=== PATIENT | female | born 1950 | race Caucasian/White ===

== ENCOUNTER 2024-11-13 09:44 | Inpatient (IN) | payer MEDICARE, SELFPAY ==
[2024-11-13] VITALS (27 sets, daily range): BP systolic 57–133; BP diastolic 35–96; BMI 24.8
[2024-11-13 07:26] LABS: Glucose - Point of Care 99 mg/dl (70-99)
[2024-11-13] MEDS: SUBLIMAZE 100 IV (07:30)
[2024-11-13] MEDS: LEVOPHED 250 IV (07:30)
--- NOTE | 2024-11-13 07:35 | ED.GENMED ---
History of Present Illness
General
Chief Complaint: Breathing Problem
Source: patient
Exam Limitations: none
Time Seen by Provider: 11/13/24 07:27
Nursing documentation reviewed up to this point in time: agreed with
History of Present Illness
History of Present Illness:
Patient with history of oxygen dependent COPD and atrial fibrillation on Eliquis, presents to ED from [facility] for evaluation after she was found unresponsive by staff this morning. Last known well time unknown. Per paramedics, when arrived at
scene, patient was found to be hypotensive, unresponsive to verbal or physical stimuli, with poor respiratory effort, along with hypoxia. Patient's initial pulse ox noted to be in the 50s. Patient was started on IV fluids, intubated at scene, and
started on epi drip for blood pressure support. Patient was provided with ketamine and Versed for sedation postintubation. Of note, Eliquis was discontinued 3 days ago, secondary to hematuria. Unable to obtain any further information at this time.
Review of Systems
Review of Systems
Allergies reviewed?: Yes
Unable to obtain full review of systems at this time due to: intubated
All Other Systems: Not applicable
Phy Exam
Physical Exam
Physical Exam:
Physical Exam
General: intubated, unresponsive. Afebrile.
Head: nc/at
Neck: supple. no jvd.
Heart: s1/s2 regular rate and rhythm, no murmur.
Lungs: no acute respiratory distress. clear bilaterally
Abdomen: normal bowel sounds. no distention
Neuro: intubated, unresponsive.
Skin: no rash
Extremities: no edema.
Scores
Heart Failure Risk
Heart Failure Risk Score: Not Applicable
Course
Orders/Labs/Results
Orders:
Orders
11/13/24 07:23
CXR Port [CR Chest Portable - 1 View] Urgent
Comment:
Reason For Exam: code
Reason Study Needs to be Portable: Patient Unstable
11/13/24 07:24
Electrocardiogram (*1) Urgent
Reason for Study: TIA/Stroke
EKG- Treatment ONCE
11/13/24 07:27
FentaNYL 1,000 MCG/100 ML [Sublimaze] 1,000 mcg in 100 ml .ROUTE .STK-MED
11/13/24 07:28
CMP [Comprehensive Metabolic Panel] Urgent
Complete Blood Count/With Diff Urgent
Lactic Acid Urgent
Magnesium Urgent
Comment: ADD
Manual Differential Urgent
PT/INR [Prothrombin Time] Urgent
Phosphorus Urgent
Comment: ADD
Pro-BNP [NT-proBNP] Urgent
Troponin I Urgent
Blood Culture Urgent
AL Source: Blood/Venous
Specimen Description:
11/13/24 07:32
CT Head W/o Iv Contrast Urgent
Comment:
Reason For Exam: mental status change
11/13/24 07:33
FentaNYL 1,000 MCG/100 ML [Sublimaze] 1,000 mcg in 100 ml IV NOW
Indication:: Light Sedation
Begin Infusion:: Now
Goal:: pain score </= 1, CPOT 0-2
Maximum dose in mcg/hr:: 300
Initial Dose in mcg/hr:: 50
Titration Instructions:: Titrate every 30 minutes if patient exhibits signs of pain or discomfort
Titration Instructions:: (pain score >/= 2, CPOT >/= 3).
Titration Instructions:: Administer bolus dose and increase infusion by 25 mcg/hr.
Taper Instructions:: If pain score at goal for 4 consecutive hours (pain score </= 1, CPOT 0-2)
Taper Instructions:: decrease infusion by 50 mcg/hr every 2 hours.
Taper Instructions:: When dose </= 50 mcg/hr may turn infusion off and consider PRN
Taper Instructions:: intermittent bolus doses only.
Over-sedation Instructions:: If CPOT 0-2 (goal) and RASS -3 to -5 (below goal) decrease sedative by 50%
Over-sedation Instructions:: first. If pain score remains at goal and RASS remains below goal in 1 hour,
Over-sedation Instructions:: decrease opioid infusion by 50%.
Notify provider:: immediately if pt exhibits: chest wall rigidity, hemodynamic instability,
Notify provider:: agitation/pain despite maximum dosing, pain when RASS below goal.
Additional Instructions:: Patient MUST be mechanically ventilated.
Fentanyl Citrate/Pf [Sublimaze] 50 mcg IV [id number] PRN
Fentanyl Citrate/Pf [Sublimaze] 60 mcg IV NOW STA
11/13/24 07:41
ABG [Arterial Blood Gas] Stat
%Oxygen/Room Air: 100
11/13/24 07:45
NORepinephrine 4 MG/250 ML [Levophed] 4 mg in 250 ml IV PER PROTOCOL
Initial dose in mcg/min, then titrate:: 5
Titrate to keep:: SBP > 90 mmHg
Titrate by mcg/min:: 1-2 mcg/min
Frequency of titrations (minutes):: 5
Maximum dose in ICU in mcg/min:: 30
Maximum dose in IMU in mcg/min:: 8
Maximum dose in IVU in mcg/min:: 4
Begin to taper infusion when:: Remained at goal for 4hrs
Taper by mcg/min:: 1-2 mcg/min
Frequency of taper (minutes) if patient maintains goal:: 30
Taper to off?: Yes
If infusion off & no longer maintaining goal:: Contact Provider
11/13/24 07:46
Urinalysis Reflex To Culture Urgent
Date Specimen was Collected: 11/13/24
Time Specimen was Collected: 07:38
Urine Microscopic Reflex Cult Urgent
11/13/24 07:49
DOPamine 400 MG/D5W 250 ML [DOPamine 400 MG] 400 mg in 250 ml .ROUTE .STK-MED
11/13/24 08:34
Maria Placement- Treatment ONCE
Reason for insertion: I&O's Critical Care
11/13/24 08:35
0.9% Sodium Chloride 1000 ml [Nss] 1,000 ml IV BOLUS
11/13/24 08:40
Strap Folding Machine Operator Consult Routine
Consulting Provider: Gavin Weeks
Was physician already notified: Yes
NEUROLOGY CONSULT Routine
Consulting Provider: Jorge Nicole
Was physician already notified: Yes
11/13/24 08:41
Blood Culture Urgent
AL Source: Blood/Venous
Specimen Description:
Date Specimen was Collected: 11/13/24
Time Specimen was Collected: 07:38
11/13/24 08:45
DOPamine 400 MG/D5W 250 ML [DOPamine 400 MG] 400 mg in 250 ml IV PER PROTOCOL
Initial dose in mcg/kg/min, then titrate:: 5
Titrate to keep:: SBP > 90 mmHg
Titrate by mcg/kg/min:: 1-2 mcg/kg/min
Frequency of titrations (minutes):: 15
Maximum dose in ICU in mcg/kg/min:: 20
Maximum dose in IMU in mcg/kg/min:: 10
Begin to taper infusion when:: Remained at goal for 4hrs
Taper by mcg/kg/min:: 1-2 mcg/kg/min
Frequency of taper (minutes) if patient maintains goal:: 30
Taper to off?: Yes
If infusion off & no longer maintaining goal:: Contact Provider
Lorazepam [Ativan] 1 mg IV NOW STA
Vecuronium Questa [Norcuron] 6 mg IV NOW STA
11/13/24 08:55
Type+Screen Urgent
11/13/24 09:10
ABO2 Urgent
BBK Wristband Number:
Associate notified that ABO2 has been ordered: [id number]
Date: 11/13/24
Time: 09:09
Electrical Tryout Person ID: [id number]
11/13/24 09:19
Admit/Transfer Patient As Directed
Co-Sign Provider:
Level of Care: Inpatient admission
Assign to:: ICU
Physician / Group: Ryan/hospitalist
Diagnosis: unresponsiveness
Reason for Hospitalization: unresponsiveness
Expected length of stay greater than two midnights?: Yes
ELOS- Estimated Length of Stay in days: 3
I certify the patient meets the requirements for IP care: Yes
11/13/24 09:20
Code Status As Directed
Resuscitation Status: Full Code
PRN Pain Medication Management As Directed
May give lesser potent ordered pain med per pt: Yes
preference::
Protocol:: Medication orders for pain may be administered in a
manner that supports deferring to patient preference
when the pt is:
- Requesting an ordered lesser potent pain medication.
Least to most potent pain medications are defined
as: acetaminophen < NSAID < tramadol < opioids
(morphine, oxycodone, hydromorphone).
- Requesting a lesser dose of the same medication IF
ORDERED.
- Requesting a less intrusive route of administration
if both routes are prescribed by the provider (PO <
IV).
11/13/24 09:52
Acetaminophen [Tylenol/Feverall] 650 mg RECTAL Q4HPRN PRN
Acetaminophen [Tylenol] 650 mg PO Q4HPRN PRN
Dextrose 50%-Water [Dextrose 50% Syringe] 12.5 grams IV [id number] PRN
Glucagon [GlucaGen] 1 mg IM PRN PRN
11/13/24 09:52
Case Management Consult ONCE
Case Management Consult: Discharge Planning
Comment: stroke/tia
DIETARY IP CONSULT Routine
Reason for Consult: stroke/TIA
Mechanical Service Representative Urgent
WOUND/OSTOMY CONSULT Routine
Reason for Consult: skin wounds
Activity As Directed
Activity Level: As Tolerated
Bedside Glucose Monitoring As Directed
Frequency: AC&HS
Additional Instructions:: Change to q6h if pt on TPN, tube feeding or not eating
NIH Stroke Scale As Directed
Directions: Per protocol
Comment: every shift and with any change in condition or mental status
Neurological Checks As Directed
Frequency: q4h
Additional Instructions:: q4h x 24h upon admission to the floor, then qshift & with any change in condition
and mental status
Pneumatic Compression Sleeves As Directed
Type: Knee high
Vital Signs As Directed
Frequency: Per unit guidelines
Ot Eval And Treat Routine
Pt Eval And Treat Routine
Activity Level: As Tolerated
Speech Therapy Eval & Treat Routine
DX Deep Vein Thrombosis Video Routine
11/13/24 12:00
Hydrocortisone Sod Succinate [Solu-Cortef] 50 mg IV Q6
Insulin Aspart Corrective Low [Novolog Flexpen-Low Resistance] See Protocol SC Q6
Abnormal Lab Results
11/13/24 11/13/24 11/13/24
07:28 07:41 07:46
WBC 3.8 L 10^3/uL
(4.8-10.8)
RBC 2.30 L 10^6/uL
(4.20-5.40)
Hgb 7.1 L g/dL
(12.0-16.0)
Hct 21.5 L %
(37.0-47.0)
RDW 17.8 H %
(11.5-14.5)
Plt Count 71 L 10^3/uL
(130-400)
MPV 12.0 H fL
(7.4-10.4)
Lymphocytes (Manual) 17 L %
(20-51)
PT 30.0 H Sec
(11.4-14.6)
pCO2 23 L mmHg
(32-35)
pO2 408 H mmHg
(83-108)
HCO3 13.9 L* mmol/L
(21-28)
ABG O2 Sat (Measured) 99.2 H %
(94-98)
Sodium 131 L mmol/L
(135-145)
Carbon Dioxide 17 L mmol/L
(22-30)
BUN 37 H mg/dl
(7-17)
Lactic Acid 8.2 H* mmol/L
(0.7-2.0)
Calcium 6.9 L* mg/dl
(8.4-10.2)
Troponin I 0.201 H* ng/ml
Total Protein 2.6 L g/dl
(6.3-8.2)
Albumin 1.3 L g/dl
(3.5-5.0)
Ur Occult Blood Reflex 1+ A
(Negative)
Urine Bacteria (Reflex) Few A
(Negative)
Urine Yeast Many A
(Negative)
Urine Glucose 1+ A
(Negative)
Urine Albumin (Reflex) 2+ A
(Neg - Trace)
11/13/24 07:28
11/13/24 07:28
Vital Signs
Initial and Last Documented VS:
Initial Vital Signs
Pulse Resp BP Pulse Ox
87 14 57/40 100
11/13/24 07:31 11/13/24 07:31 11/13/24 07:31 11/13/24 07:31
Last Documented Vital Signs
Temp Pulse Resp BP Pulse Ox
96.5 F L 59 11 78/49 71
11/13/24 11:00 11/13/24 13:30 11/13/24 13:30 11/13/24 12:50 11/13/24 12:00
MDM/Problems Addressed
MDM/Problems Addressed:
Patient evaluated immediately upon arrival. After chest x-ray, ET tube adjusted, next was noted to be near right mainstem. As such, ET tube pulled back 1 cm.
Epi infusion discontinued and Levophed started along with IV fluids. Patient will be started on fentanyl infusion.
Stat CT head ordered.
CT head: Evolving subacute CVA without hemorrhage.
Secondary to persistent hypotension despite max infusion rate of Levophed, will add dopamine infusion.
Left femoral central line placed emergently by myself.
Patient will be admitted to ICU for further evaluation and treatment.
(neurology) notified via [email or web address]
Critical care statement: A total of 40 minutes of critical care time was provided for this patient. This includes management of unstable vital signs, evaluation of the patient at bedside, reviewing the patient's pertinent medical records, discussion
with consultants, review of old EKGs and review of pertinent medical records. This time with separate from time utilized to perform the aforementioned documented procedures
*EKG
Interpreted by ED Provider?: Yes
EKG Intrepretation Date: 11/13/24
Heart Rate: 94
Rate: normal
Rhythm: sinus
[place]: left axis deviation
*Critical Care Note
Total Time (30-74mins, 75-104mins- exclusive of procedures): 40 min
ED Attending Note
-
Portions of this chart may have been created with voice recognition software.� Occasional wrong word or��sound alike� substitutions may have occurred due to the inherent limitations of voice recognition software.
Discharge Plan
Departure
Patient Disposition: Admit
Date of Disposition: 11/13/24
Time of Disposition: 08:32
Admit to: ICU
Presentation/result/management discussed w/ accepting MD/DO: Hospitalist
Discharge Problem:
Acute CVA (cerebrovascular accident), Respiratory failure, Hypotension
Interventions
Interventions:
*Risk Screen - Suicide Last Done: 11/13/24 11:17
*Neglect/Abuse Screening Last Done: 11/13/24 08:18
*ED- Fall Risk Assessment Last Done: 11/13/24 07:36
*Nursing Disposition Last Done: 11/13/24 10:07
ED- Cardiac Assessment Last Done: 11/13/24 08:08
ED- Pulmonary Assessment Last Done: 11/13/24 08:11
Discharge Date and Time
Discharge Date/Time: 11/13/24 09:55
[2024-11-13 07:49] LABS: B.E. -10.1 mmol/L; O2 Saturation % 99.2 % (94-98); PCO2 23 mmHg (32-35); PO2 408 mmHg (83-108); pH 7.39 (7.35-7.45)
[2024-11-13 07:51] LABS: HCO3 13.9 mmol/L (21-28)
[2024-11-13 07:51] LABS: INR 2.81
[2024-11-13 07:59] LABS: Hematocrit 21.5 % (37.0-47.0); Hemoglobin 7.1 g/dL (12.0-16.0); Mean Corpuscular Hgb 30.9 pg (27.0-31.0); Mean Corpuscular Volume 93.5 fL (81.0-99.0); Platelet Count 71 10^3/uL (130-400); Red Cell Dist. Width 17.8 % (11.5-14.5); White Blood Cell Count 3.8 10^3/uL (4.8-10.8)
[2024-11-13 08:00] LABS: AST (SGOT) 23 U/L (14-36); Albumin 1.3 g/dl (3.5-5.0); Alkaline Phosphatase 89 U/L (38-126); Blood Urea Nitrogen 37 mg/dl (7-17); Calcium 6.9 mg/dl (8.4-10.2); Carbon Dioxide 17 mmol/L (22-30); Chloride 104 mmol/L (98-107); Glucose 90 mg/dl (70-99); Lactic Acid 8.2 mmol/L (0.7-2.0); Potassium 3.5 mmol/L (3.5-5.1); Sodium 131 mmol/L (135-145); Total Bilirubin 0.7 mg/dl (0.2-1.3); Total Protein 2.6 g/dl (6.3-8.2); eGFR 58.75
[2024-11-13 08:13] LABS: NT-proBNP > 27000 pg/ml; Troponin I 0.201 ng/ml
--- NOTE | 2024-11-13 08:15 | EDRN ---
during initial eval- multiple areas of ecchmosis abd/ thigh, many areas of skin breakdown
[2024-11-13 08:28] LABS: ALT (SGPT) 31 U/L (0-35)
--- NOTE | 2024-11-13 08:36 | CON.INTV ---
Consultation
Consultation Request
Date/Time Consultation Requested: 11/13/2024-10 AM
Date/Time Consultation Performed: 11/13/2024-10 AM
Requesting Provider: hospitalist
Performing Provider: Dr. Weeks
Reason for Consultation: ventilator/CVA/critical care management
Medical History
-
Chief Complaint: CVA
History of Present Illness:
74-year-old former smoking female who is oxygen dependent COPD, atrial fibrillation on Eliquis, hypertension, hyperlipidemia, dementia, diabetes who presented from a longterm after having Eliquis held for 2 days due to hematuria with decreased
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 Patient is unresponsive on the ventilator and review of systems was unobtainable. He she does not
have significant secretions. The ventilator settings were reviewed.
Past Medical History
Past Medical History: None ( COPD-oxygen dependent. Former smoker. Atrial fibrillation on Eliquis. Hypertension. Hyperlipidemia. Diabetes. Dementia. halfway patient.)
Social History
Tobacco: Former Smoker
Alcohol: None
Drug: None
Living: [facility]
Occupational Exposures: Unknown tuberculosis exposure
Environmental Exposures: unknown asbestos exposure
Family History
Family History: Reviewed & Not Pertinent
Allergies / Home Medications
Allergies
Allergy/AdvReac Type Severity Reaction Status Date / Time
chlorpheniramine Allergy Pharmacy Verified 11/13/24 07:22
to Review
hydrocodone Allergy Pharmacy Verified 11/13/24 07:22
to Review
latex Allergy Pharmacy Verified 11/13/24 07:22
to Review
lisinopril Allergy Pharmacy Verified 11/13/24 07:22
to Review
Home Medications
�Medication �Instructions �Recorded �Confirmed �Last Taken �Type
acetaminophen 325 mg tablet 650 mg PO Q6HPRN PRN mild pain 11/13/24 11/13/24 Unknown History
(Tylenol)
apixaban 5 mg tablet (Eliquis) 5 mg PO BID 11/13/24 11/13/24 Unknown History
aspirin 81 mg tablet 81 mg PO DAILY 11/13/24 11/13/24 Unknown History
bisacodyl 10 mg rectal suppository 10 mg VA DAILYPRN PRN if no bm 11/13/24 11/13/24 Unknown History
(Dulcolax (bisacodyl)) aftr mom
cholecalciferol (vitamin D3) 25 50 mcg PO DAILY 11/13/24 11/13/24 Unknown History
mcg (1,000 unit) tablet (Vitamin
D3)
diltiazem HCl 180 mg capsule,24 180 mg PO DAILY 11/13/24 11/13/24 Unknown History
hr,extended release
donepezil 10 mg tablet 10 mg PO HS 11/13/24 11/13/24 Unknown History
ezetimibe 10 mg tablet (Zetia) 10 mg PO DAILY 11/13/24 11/13/24 Unknown History
fluticasone 250 mcg-salmeterol 50 1 inh inhalation R BID 11/13/24 11/13/24 Unknown History
mcg/dose blistr powdr for
inhalation (Advair Diskus)
insulin lispro 100 unit/mL 1 sliding scale dose SC ACHS 11/13/24 11/13/24 Unknown History
subcutaneous pen (Humalog KwikPen
(U-100) Insulin)
ipratropium 0.5 mg-albuterol 3 mg 3 ml inhalation R Q6HPRN PRN sob 11/13/24 11/13/24 Unknown History
(2.5 mg base)/3 mL nebulization
soln
magnesium hydroxide 400 mg/5 mL 2,400 mg PO DAILYPRN PRN if no bm 11/13/24 11/13/24 Unknown History
oral suspension (Milk of Magnesia) by 3rd day
magnesium oxide 400 mg PO DAILY 11/13/24 11/13/24 Unknown History
montelukast 10 mg tablet 10 mg PO DAILY 11/13/24 11/13/24 Unknown History
(Singulair)
pantoprazole 40 mg tablet,delayed 40 mg PO BID 11/13/24 11/13/24 Unknown History
release
polyethylene glycol 3350 17 gram 17 g PO DAILYPRN PRN comnstipation 11/13/24 11/13/24 Unknown History
oral powder packet (Miralax)
prednisone 20 mg tablet 50 mg PO DAILY 11/13/24 11/13/24 Unknown History
sennosides 8.6 mg tablet (senna) 17.2 mg PO DAILYPRN PRN 11/13/24 11/13/24 Unknown History
constipation
sodium phosphates 19 gram-7 118 ml VA DAILYPRN PRN if no bm 11/13/24 11/13/24 Unknown History
gram/118 mL enema (Fleet Enema) aftr dulcolax
umeclidinium 62.5 mcg/actuation 1 inh inhalation R DAILY 11/13/24 11/13/24 Unknown History
blister powder for inhalation
(Incruse Ellipta)
Review of Systems
-
Unable to Obtain full review of systems at this time due to: Patient Intubation
Vitals / Labs / Diagnostic Testing
Vital Signs
Pulse Resp BP Pulse Ox
81 14 96/50 100
11/13/24 08:10 11/13/24 08:10 11/13/24 08:06 11/13/24 08:06
Lab Data
11/13/24 07:28
11/13/24 07:28
Laboratory Results
11/13/24 11/13/24
07:28 07:41
PT 30.0 H
INR 2.81
pH 7.39
pCO2 23 L
pO2 408 H
HCO3 13.9 L*
O2 Delivery Level
Diagnostic Testing:
Physical Exam
-
Exam:
well-nourished and well-developed, orotracheal intubation in no distress
HEENT-atraumatic, normocephalic
Neck-supple, no JVD, no bruit
Heart regular with systolic murmur
Chest with diminished breath sounds, prolonged expiratory time, no wheezes or crackles
Back-no tenderness
Abdomen-soft, nontender, nondistended, no hepatosplenomegaly
Extremities-no cyanosis, clubbing, trace edema, ecchymotic areas, left foot discolored/slightly blue-warm
Integument-intact, no rashes, lesions or ecchymosis
Neurologically not alert, not oriented, sedated on a ventilator
Assessment
-
74-year-old former smoking female who is oxygen dependent COPD, atrial fibrillation on Eliquis, hypertension, hyperlipidemia, dementia, diabetes who presented from a longterm after having Eliquis held for 2 days due to hematuria with decreased
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
Respiratory failure-acute on top of chronic hypoxemic respiratory failure requiring intubation
Intubated 11/13/2024
Extubated
Change in mental status/unresponsive felt secondary to acute CVA
CVA-acute/subacute nonhemorrhagic
Hypotension/shock requiring pressors
Atrial fibrillation on Eliquis-held for 72 hours for hematuria
Leukopenia
Rohjiq-jgvrcotleh-hpzblxtivi 7.1-etiology unclear
Recent hematuria
Thrombocytopenia
Hyponatremia
Metabolic acidosis
Lactic acidosis
Elevated troponin-suspected NSTEMI
Hypocalcemia
Hypoalbuminemia
Conditions present prior to admission:
COPD-oxygen dependent.
Former smoker.
Atrial fibrillation on Eliquis.
Hypertension.
Hyperlipidemia.
Diabetes.
Dementia.
halfway patient.
Plan
Critically ill intubated with evolving CVA in a patient with advanced oxygen dependent COPD requiring medical intensive care unit monitoring
Intubated mechanically ventilated
Ventilator settings reviewed
Check ABG
Adjust ventilator
Spontaneous breathing trial once mental status improves
VAP prevention protocol
Nebulizers as needed
Mucolytic's
Neuro exams continue
CT head summarized below
Neurology evaluation
Note Eliquis was held for 72 hours prior to admission due to hematuria
Check cultures
Observe off antibiotics-no obvious source for infection or cause of hypotension
Norepinephrine-MAP greater than 65
Subsequently consider vasopressin, dopamine if bradycardic
Follow lactate
Intravenous fluid resuscitation
Trend troponin
Atrial fibrillation rate control
Consider cardiology evaluation if troponin continues to increase-abnormal EKG as well
Follow hemoglobin
Transfuse as needed
Monitor for recurrent hematuria
Follow thrombocytopenia
Transfuse as needed
Replace electrolytes
DVT prophylaxis
GI prophylaxis while on ventilator and hypotensive
Early nutrition
Early mobilization/bedside range of motion
Critical care statement: A total of 65 minutes of critical care time was provided for this patient today. This includes management of unstable vital signs, evaluation of the patient at bedside, reviewing the patient's pertinent medical records
including radiographs, ventilator management, pressor management, microbiology, laboratory evaluations, and discussion with primary team, consultants, pharmacy, nutrition, physical therapy, case management, charge nurse, critical care nursing, and
respiratory therapy.
Diagnostic data:
Chest x-ray 11/13/2024-endotracheal tube tip 1 cm above the cal
CT head 11/13/2024-evolving small acute/subacute nonhemorrhagic infarct right posterior parietal lobe, small old infarcts in the right parietal lobe
Data Reviewed
-
EKG: Report reviewed by me
Radiology: Image personally visualized and interpreted and Report reviewed by me
CT Scan: Report reviewed by me
Medical Tests (Nuc Med, Echo etc): Report reviewed by me
Labs: Labs reviewed by me
Old Records: Reviewed
Critical Care Time (in minutes): 65
--- NOTE | 2024-11-13 08:40 | HPS.HSE ---
Family Physician
-
Family Physician: Joshua Greenwood,
Chief Complaint
-
unresponsiveness
History of Present Illness
HPI: 74 yo F, h/o oxygen dependent COPD, atrial fibrillation on Eliquis, HTN, HLD, dementia orientated to self, IDDM; presented to ED from skilled nursing for decrease responsiveness noted by staff in the morning. Last known well time unknown.
Per paramedics, when arrived at scene, patient was found to be hypotensive, unresponsive to verbal or physical stimuli, with poor respiratory effort, along with hypoxia.
Patient's initial sat was noted to be in the 50s. Patient was started on IV fluids, intubated on scene, and started on epi drip for blood pressure support. Patient was provided with ketamine and Versed for sedation postintubation. Of note, Eliquis
was discontinued 3 days DATA SUPPORT SPECIALIST secondary to hematuria.
History obtained from ED staff.
Medical History
Past Medical History
Past Medical History: Reports Other
Additional Past Medical History:
oxygen dependent COPD,
atrial fibrillation on Eliquis,
HTN,
HLD,
dementia orientated to self,
Past Surgical History: Reports None
Social History
Unable to obtain full social history at this time due to: Acuity
Living: Longterm
Family History
Family History: Not pertinent
Allergies / Home Medications
Allergies reflects when Allergies were last updated in [email or web address].
Home Medications with original date entered in [email or web address]
Allergy/Medication List:
Allergies
Allergy/AdvReac Type Severity Reaction Status Date / Time
chlorpheniramine Allergy Pharmacy Verified 11/13/24 07:22
to Review
hydrocodone Allergy Pharmacy Verified 11/13/24 07:22
to Review
latex Allergy Pharmacy Verified 11/13/24 07:22
to Review
lisinopril Allergy Pharmacy Verified 11/13/24 07:22
to Review
Home Medications
acetaminophen 325 mg tablet (Tylenol) 650 mg PO Q6HPRN PRN mild pain 11/13/24
apixaban 5 mg tablet (Eliquis) 5 mg PO BID 11/13/24
aspirin 81 mg tablet 81 mg PO DAILY 11/13/24
bisacodyl 10 mg rectal suppository (Dulcolax (bisacodyl)) 10 mg OK DAILYPRN PRN if no bm aftr mom 11/13/24
cholecalciferol (vitamin D3) 25 mcg (1,000 unit) tablet (Vitamin D3) 50 mcg PO DAILY 11/13/24
diltiazem HCl 180 mg capsule,24 hr,extended release 180 mg PO DAILY 11/13/24
donepezil 10 mg tablet 10 mg PO HS 11/13/24
ezetimibe 10 mg tablet (Zetia) 10 mg PO DAILY 11/13/24
fluticasone 250 mcg-salmeterol 50 mcg/dose blistr powdr for inhalation (Advair Diskus) 1 inh inhalation R BID 11/13/24
insulin lispro 100 unit/mL subcutaneous pen (Humalog KwikPen (U-100) Insulin) 1 sliding scale dose SC ACHS 11/13/24
ipratropium 0.5 mg-albuterol 3 mg (2.5 mg base)/3 mL nebulization soln 3 ml inhalation R Q6HPRN PRN sob 11/13/24
magnesium hydroxide 400 mg/5 mL oral suspension (Milk of Magnesia) 2,400 mg PO DAILYPRN PRN if no bm by 3rd day 11/13/24
magnesium oxide 400 mg PO DAILY 11/13/24
montelukast 10 mg tablet (Singulair) 10 mg PO DAILY 11/13/24
pantoprazole 40 mg tablet,delayed release 40 mg PO BID 11/13/24
polyethylene glycol 3350 17 gram oral powder packet (Miralax) 17 g PO DAILYPRN PRN comnstipation 11/13/24
prednisone 20 mg tablet 50 mg PO DAILY 11/13/24
sennosides 8.6 mg tablet (senna) 17.2 mg PO DAILYPRN PRN constipation 11/13/24
sodium phosphates 19 gram-7 gram/118 mL enema (Fleet Enema) 118 ml OK DAILYPRN PRN if no bm aftr dulcolax 11/13/24
umeclidinium 62.5 mcg/actuation blister powder for inhalation (Incruse Ellipta) 1 inh inhalation R DAILY 11/13/24
Review of Systems
-
Unable to obtain full review of systems at this time due to: Acuity
Physical Exam
Vital Signs
Vital Signs
Pulse Resp BP Pulse Ox
81 14 96/50 100
11/13/24 08:10 11/13/24 08:10 11/13/24 08:06 11/13/24 08:06
Physical Exam
General: Well Developed, Well Nourished and Respiratory Distress
HEENT: NormoCephalic, Moist mucous membranes, Atraumatic and Oxygen (intubated)
Respiratory: Clear and Non Labored Respirations; No Accessory Resp Muscle Use
Cardiac: S1/S2 and Regular Rhythm; No Murmur or Rub
GI: Soft, Non Tender, Non Distended and Normal Bowel Sounds; No Organomegaly
Rectal: Deferred by Provider
Genito-urinary: Gerber
Musculoskeletal: No Clubbing, No Cyanosis, Edema, Left Lower Extremity and Edema, Right Lower Extremity
Skin: No Rash
Neuro: Sedated
Laboratory Results
-
11/13/24 07:28
11/13/24 07:28
Laboratory Results
PT 30.0 Sec (11.4-14.6) H 11/13/24 07:28
INR 2.81 11/13/24 07:28
pH 7.39 (7.35-7.45) 11/13/24 07:41
pCO2 23 mmHg (32-35) L 11/13/24 07:41
pO2 408 mmHg (83-108) H 11/13/24 07:41
HCO3 13.9 mmol/L (21-28) L* 11/13/24 07:41
Lactic Acid 8.2 mmol/L (0.7-2.0) H* 11/13/24 07:28
Total Bilirubin 0.7 mg/dl (0.2-1.3) 11/13/24 07:28
AST 23 U/L (14-36) 11/13/24 07:28
ALT 31 U/L (0-35) 11/13/24 07:28
Alkaline Phosphatase 89 U/L (38-126) 11/13/24 07:28
Troponin I 0.201 ng/ml H* 11/13/24 07:28
Data Reviewed
-
CT Scan: Report Reviewed by me
Lab Data: Labs Reviewed by me
Impression/Plan
-
HPI: 74 yo F, h/o oxygen dependent COPD, atrial fibrillation on Eliquis, HTN, HLD, dementia orientated to self; presented to ED from skilled nursing for decrease responsiveness noted by staff in the morning. Last known well time unknown.
Per paramedics, when arrived at scene, patient was found to be hypotensive, unresponsive to verbal or physical stimuli, with poor respiratory effort, along with hypoxia.
Patient's initial sat was noted to be in the 50s. Patient was started on IV fluids, intubated on scene, and started on epi drip for blood pressure support. Patient was provided with ketamine and Versed for sedation postintubation. Of note, Eliquis
was discontinued 3 days DATA SUPPORT SPECIALIST secondary to hematuria.
History obtained from ED staff.
A/P:
# Acute on chronic hypoxic respiratory failure
s/p intubation on scene
cont vent support and sedation per Timber Estimator
# Unresponsiveness, likely 2/[address] head on admission noted evolving small acute/subacute nonhemorrhagic infarct in the right posterior parietal lobe.
at this point following intubation, unclear if MRI brain is possible or not, if not, would repeat CT head
Defer to Neuro wrt OAC
Neuro CS
# Suspect neurogenic shock related to stroke
cont levophed for BP support
hold BP meds
noted pt on prednisone at skilled nursing, cover with stress dose steroid hydrocortisone 50 Q8
# COPD with chronic hypoxic respiratory failure on home O2
noted pt on prednisone at skilled nursing, cover with stress dose steroid hydrocortisone 50 Q8
# Atrial fibrillation on Eliquis
Noted Eliquis was stopped 3 days DATA SUPPORT SPECIALIST for hematuria
No significant hematuria noted in gerber
# dementia orientated to self at baseline
# Skin lesions POA
# Sacral decub wound POA
wound care CS
DVT ppx: SCD for now, Defer to Neuro wrt OAC
FC
[2024-11-13 08:56] LABS: Urine Albumin 2+ (Neg - Trace); Urine Bilirubin Negative (Negative); Urine Character Clear (Clear); Urine Color Yellow; Urine Glucose 1+ (Negative); Urine Ketone Negative (Negative); Urine Leukocyte Negative (Negative); Urine Nitrite Negative (Negative); Urine Occult Blood 1+ (Negative); Urine Specific Gravity 1.015 (<1.030); Urine Urobilinogen Negative (Neg - 1+)
[2024-11-13] MEDS: ATIVAN 1 MG IV (09:02)
[2024-11-13] MEDS: NSS 1000 IV (09:03)
[2024-11-13 09:14] LABS: Absolute Neutrophils -Man Diff 2.1 10^3/uL (1.4-6.5); Band Neutrophils 3 % (0-3); Lymphocytes 17 % (20-51); Monocytes 5 % (2-9); Segmented Neutrophils 53 % (42-75)
[2024-11-13 09:15] LABS: Anisocytosis Slight; Metamyelocytes 11 % (-); Myelocytes 11 % (-); Normal RBC Morphology No; Platelets Checked Yes
[2024-11-13 09:16] LABS: Hypochromasia 1+; Microcytosis Slight; Polychromasia Slight
[2024-11-13 09:17] LABS: Acanthocytes Slight; Total Cells Counted 100
--- NOTE | 2024-11-13 09:47 | CON.NEURO ---
Addendum entered and electronically signed by Jorge Nicole MD 11/13/24 13:54:
Studies reviewed.
I have personally examined the patient. I reviewed and agree with the SERVICE STATION EQUIPMENT MECHANIC's Note.
My addenda:
Intubated. Unresponsive. No acute distress. No tremor. Spontaneous movement of the right foot without clear function, intermittently.
Funduscopic exam unremarkable. Pupils unresponsive to light.
Reflexes absent.
Ext: (-) Clubbing, (-) Cyanosis, (-) Edema
IMPRESSIONS/RECOMMENDATIONS:
Abrupt onset of encephalopathy of the, most likely toxic metabolic in nature with the patient having worsening following recent subacute ischemic stroke
Plan has been made for withdrawal of care.
D/W nursing
Will follow as needed.
Original Note:
Documented by User: Sandy Yo NP 11/13/24 13:14
Neuro Assessment/Plan
Assessment
The patient is a 74 yo female with a past medical history of oxygen dependent COPD, atrial fibrillation on Eliquis, HTN, HLD, CVA, dementia orientated to self, IDDM who presented to [facility] from senior care for decrease responsiveness
noted by staff in the morning. Last known well time unknown.
Chest x-ray 11/13/2024-endotracheal tube tip 1 cm above the cal
CT head 11/13/2024-evolving small acute/subacute nonhemorrhagic infarct right posterior parietal lobe, small old infarcts in the right parietal lobe
Plan
Impression
1. Evolving subacute ischemic CVA in the setting of held anticoagulation
2. Atrial fibrillation
3. COPD with chronic hypoxic respiratory failure on home O2
-Attempt brain MRI, if not possible then repeat head CT
-goal normotension, normoglycemia
-Hgb A1C and lipid panel pending
-Eliquis on hold due to hematuria
-NIHSS and neuro checks per unit guidelines Laboratory values reviewed. Studies reviewed and images viewed if pertinent.
Consultation
Order
Date of Consultation: 11/13/24
Requesting Provider: Brandy Davis MD
Reason for Consult: CVA
Subjective/Objective
Subjective Data
Date of Service: November 13, 2024
History of Present Illness:
Patient currently intubated and sedated, HPI taken from Dr. Gordon:
'Patient is a 74 yo female with a past medical history of oxygen dependent COPD, atrial fibrillation on Eliquis, HTN, HLD, CVA dementia orientated to self who presented to [facility] from senior care for decrease responsiveness noted by
staff in the morning. Last known well time unknown. Per paramedics, when arrived at scene, patient was found to be hypotensive, unresponsive to verbal or physical stimuli, with poor respiratory effort, along with hypoxia.
Patient's initial sat was noted to be in the 50s. Patient was started on IV fluids, intubated on scene, and started on epi drip for blood pressure support. Patient was provided with ketamine and Versed for sedation postintubation. Of note, Eliquis
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
History obtained from ED staff.'
Head CT showed evolving small acute/subacute nonhemorrhagic infarct in the right posterior parietal lobe. Also showed additional small old infarct in the right parietal lobe. Chest xray showed no pneumothorax, no significant focal parenchymal
opacification. At time of evaluation, patient intubated and sedated not following commands only moving RLE spontaneously.
Objective Data
Vital Signs
Temp Pulse Resp BP Pulse Ox
96 F L 85 14 129/59 93
11/13/24 09:16 11/13/24 09:30 11/13/24 09:30 11/13/24 09:30 11/13/24 09:30
Lab Results
11/13/24 07:28
11/13/24 07:28
PT 30.0 Sec (11.4-14.6) H 11/13/24 07:28
INR 2.81 11/13/24 07:28
Sodium 131 mmol/L (135-145) L 11/13/24:
Potassium 3.5 mmol/L (3.5-5.1) 11/13/24:
BUN 37 mg/dl (7-17) H 11/13/24:
Glucose 90 mg/dl (70-99) 11/13/24:
Calcium 6.9 mg/dl (8.4-10.2) L* 11/13/24:
Yxw-L-Tzvrrsbtvht Pept > 30244 pg/ml 11/13/24:
Patient Allergies
chlorpheniramine Allergy (Verified 11/13/24 07:22)
Pharmacy to Review
hydrocodone Allergy (Verified 11/13/24 07:22)
Pharmacy to Review
latex Allergy (Verified 11/13/24 07:22)
Pharmacy to Review
lisinopril Allergy (Verified 11/13/24 07:22)
Pharmacy to Review
CVA Assessment
Onset of Stroke Symptoms
Onset of symptoms known: No
Time pt last seen normal is known: No
NIH Stroke Score
Level of Consciousness: 3 - Totally unresponsive
LOC Questions: 2-Neither correct
LOC Commands: 2-Performs neither correctly
Best Horizontal Gaze: 0-Normal
Visual Frias: 0=Normal, no visual loss
Facial Palsy: 0=Normal, symmetrical
Motor - Right Arm: UN=Amputation/jointfusion
Motor - Left Arm: UN=Amputation/jointfusion
Motor - Right Leg: UN-Amputation/jointfusion
Motor - Left Leg: UN-Amputation/jointfusion
Limb Ataxia: UN-Amputation/jointfusion
Sensation: 2-Severe loss
Best Language: 3-Mute/global aphasia
Dysarthria: UN-Intubated, other
Extinction and Inattention: 2-Total alexander inattention
Total Score:: 14
Tenecteplase Contraindications
Inclusion and Exclusion criteria reviewed: Yes
Reasons for NON-Tx with Thrombolytics ABSOLUTE Exclusions: Time-out of window
IAT Contraindications: >6 hrs from onset/last seen normal and Significant dementia
Modified Naren Score (MRS)
-
Modified Monmouth Scale (mRS): Severe disability. Requires constant nursing care.
Score: 5
Review of Systems
-
Unable to obtain full review of systems at this time due to: Acuity and Patient Intubation
Physical Exam
Extended Neurological Exam
Mood & Affect: Unable to Assess
Attention Span & Concentration: Unable to assess
Memory: Unable to Assess
Speech: Unable to Assess
Cranial Nerve II: Left Eye: Other (pinpoint)
Cranial Nerve II: Right Eye: Other (pinpoint)
Cranial Nerves III, IV, : Extraocular Movement: Other (Lagophthalmos)
Cranial Nerve V: Facial Sensation: Unable to Assess
Cranial Nerve VII: Facial Symmetry: Unable to Assess
Cranial Nerve VIII: Hearing: Unable to Assess
Cranial Nerves IX, X: Palate Movement: Unable to Assess
Cranial Nerve XI: Shoulder Shrug: Unable to Assess
Cranial Nerve XII: Tongue Protusion: Unable to Assess
Muscle Strength, Overall: Other (RLE spontaneous movement, RUE/LUE/LLE no movement)
Pronator Drift: Unable to Assess
Deep Tendon Reflexes: Absent
Cold Sensation: Unable to Assess
Vibration Sensation: Unable to Assess
Touch Sensation: Unable to Assess
Coordination: Unable to Assess
Gait & Station: Unable to Assess
Medications
-
Active Medications
Generic Name Dose Route Start Last Admin
Trade Name Freq PRN Reason Stop Dose Admin
Norepinephrine Bitartrate 4 mg in 250 mls @ 0 mls/hr 11/13/24 07:45 11/13/24 07:30
Levophed IV 250 mls
PER PROTOCOL ANKUR Administration
Protocol
Per Protocol
Dopamine HCl/Dextrose 400 mg in 250 mls @ 0 mls/hr 11/13/24 08:45
Dopamine 400 Mg IV
PER PROTOCOL ANKUR
Protocol
Per Protocol
Home Medications
�Medication �Instructions �Recorded
acetaminophen 325 mg tablet 650 mg PO Q6HPRN PRN mild pain 11/13/24
(Tylenol)
apixaban 5 mg tablet (Eliquis) 5 mg PO BID 11/13/24
aspirin 81 mg tablet 81 mg PO DAILY 11/13/24
bisacodyl 10 mg rectal suppository 10 mg OR DAILYPRN PRN if no bm 11/13/24
(Dulcolax (bisacodyl)) aftr mom
cholecalciferol (vitamin D3) 25 50 mcg PO DAILY 11/13/24
mcg (1,000 unit) tablet (Vitamin
D3)
diltiazem HCl 180 mg capsule,24 180 mg PO DAILY 11/13/24
hr,extended release
donepezil 10 mg tablet 10 mg PO HS 11/13/24
ezetimibe 10 mg tablet (Zetia) 10 mg PO DAILY 11/13/24
fluticasone 250 mcg-salmeterol 50 1 inh inhalation R BID 11/13/24
mcg/dose blistr powdr for
inhalation (Advair Diskus)
insulin lispro 100 unit/mL 1 sliding scale dose SC ACHS 11/13/24
subcutaneous pen (Humalog KwikPen
(U-100) Insulin)
ipratropium 0.5 mg-albuterol 3 mg 3 ml inhalation R Q6HPRN PRN sob 11/13/24
(2.5 mg base)/3 mL nebulization
soln
magnesium hydroxide 400 mg/5 mL 2,400 mg PO DAILYPRN PRN if no bm 11/13/24
oral suspension (Milk of Magnesia) by 3rd day
magnesium oxide 400 mg PO DAILY 11/13/24
montelukast 10 mg tablet 10 mg PO DAILY 11/13/24
(Singulair)
pantoprazole 40 mg tablet,delayed 40 mg PO BID 11/13/24
release
polyethylene glycol 3350 17 gram 17 g PO DAILYPRN PRN comnstipation 11/13/24
oral powder packet (Miralax)
prednisone 20 mg tablet 50 mg PO DAILY 11/13/24
sennosides 8.6 mg tablet (senna) 17.2 mg PO DAILYPRN PRN 11/13/24
constipation
sodium phosphates 19 gram-7 118 ml OR DAILYPRN PRN if no bm 11/13/24
gram/118 mL enema (Fleet Enema) aftr dulcolax
umeclidinium 62.5 mcg/actuation 1 inh inhalation R DAILY 11/13/24
blister powder for inhalation
(Incruse Ellipta)
Past History
Past History
ED Past Medical History: Arrthythmia (atrial fibrillation), Asthma, COPD, CVA, GERD, HTN, IDDM and Psychiatric (depression, anxiety)

Documented by User: Jorge Nicole MD 11/13/24 13:48
CVA Assessment
NIH Stroke Score
Total Score:: 14
Modified Monmouth Score (MRS)
-
Score: 5
[2024-11-13 10:05] LABS: Urine Squamous Cell 0-2 /LPF (Few)
[2024-11-13 10:06] LABS: Urine Amorphous Seen; Urine Hyaline Cast 0-2 /LPF (0-2)
[2024-11-13 10:07] LABS: Urine Granular Cast 0-2 /LPF (0)
[2024-11-13 10:08] LABS: Urine Red Blood Cell 0-2 /HPF (0-2)
[2024-11-13 10:09] LABS: Urine White Cell 0-2 /HPF (0-5); Urine Yeast Many (Negative)
[2024-11-13 10:10] LABS: Urine Bacteria Few (Negative)
[2024-11-13 10:28] LABS: Glucose - Point of Care 84 mg/dl (70-99)
--- NOTE | 2024-11-13 11:07 | PTCARENOTE ---
patient received@10 am from ED. completely unresponsive. neurologist at bedside to evaluate. assessments per work list. fentanyl d/c. Levophed per work list. gerber draining scant yellow urine. left femoral triple line patent with good blood returns.
salem sump placed right nare with out issue. multiple wounds dressed per work list. ett to vent settings per work list. daughter Alie at bedside. updated.
[2024-11-13 11:25] LABS: APTT 39.4 Sec (23.4-35.0)
[2024-11-13 11:29] LABS: Lactic Acid 9.9 mmol/L (0.7-2.0)
--- NOTE | 2024-11-13 11:53 | W.PN.UPDATE ---
Update Note
Progress Note Update
Updated multiple family members several times throughout the morning-they wish DNR status, and want her extubated for comfort, realize the patient will pass
Consent was previously obtained for blood products which will not be given as patient is terminal
Family again updated including son, [id number]-emotional and spiritual support provided
Patient will be extubated for comfort
Total CC time today 80 min
[2024-11-13] MEDS: DILAUDID 0.5 MG IV ×2 (11:55→13:07)
--- NOTE | 2024-11-13 12:02 | PTCARENOTE ---
Addendum entered by Kitty Briones RN 11/13/24 12:09:
extubated without issue. ngt removed, unresponsive. screen printing inspector care at bedside. support given
Original Note:
family at bedside. spoke with lumber bearer, descision to place on comfort measures. levophed off.dilaudid administered prior to extubation. RT at bedside to extubate
--- NOTE | 2024-11-13 12:07 | RESPNOTE ---
patient extubated for comfort care at 12:05. family at the bedside.
[2024-11-13 12:35] LABS: Magnesium 1.7 mg/dl (1.6-2.3); Phosphorus 2.6 mg/dl (2.5-4.5)
--- NOTE | 2024-11-13 13:23 | W.PN.UPDATE ---
Update Note
Progress Note Update
d/w Manager Pricing and RN. Family at bedside would like to proceed with comfort extubation.
Pt was extubated and was started with comfort measures.
--- NOTE | 2024-11-13 13:38 | WOUNDNOTE ---
WOC RN NOTE: Per chart review patient has been placed on comfort care.
--- NOTE | 2024-11-13 13:49 | PTCARENOTE ---
in to administer sacrament of sick. prn dilaudid administered per MAR
--- NOTE | 2024-11-13 14:02 | PTCARENOTE ---
patient . family at bedside. emotional support provided. hospitalist notified by tt to pronounce
--- NOTE | 2024-11-13 14:06 | W.PN.DEATH ---
Pronouncement of
-
Called to see patient to pronounce.
No spontaneous heart tones or respirations noted.
Patient not responsive to verbal stimuli.
Patient is pronounced .
Time of : 14:00
Date of : 11/13/24
Family Notified: Yes (family at bedside )
--- NOTE | 2024-11-13 14:18 | W.DCSUMMARY ---
Discharge Summary
Discharge Data
Date of Admission: 11/13/24
Date of Discharge: 11/13/24
-
Pending Results: No
Hospital Course
Principal Diagnosis:
Hypoactive delirium/acute metabolic encephalopathy
Suspect evolving ischemic stroke
Neurogenic shock
Acute hypoxic respiratory failure
Chronic Diagnoses:�
Oxygen dependent COPD,
atrial fibrillation on Eliquis,
HTN,
HLD,
dementia orientated to self, IDDM;
Consultations:�
Client Support Analyst
Neurology
Procedures:�
None
Clinical course:�
This is a 74-year-old female, with past medical history as stated above, who presented from her half-way for decreased responsiveness. Unknown last well time.
According to corporate logistics manager, the patient was found to be hypotensive and unresponsive to verbal or tactile stimuli. She was also hypoxic with saturation apparently in the 50s. She was intubated on site and was started with epi drip for blood pressure
support.
Her CT head in the emergency room noted evolving small acute/subacute nonhemorrhagic infarct in the right posterior parietal lobe.
Her family arrived and goals of care was discussed. They expressed wish for comfort extubation.
The patient was extubated and started with comfort measures. She very quickly and peacefully on 11/13/2024. Time of at 2 PM.
Her family was at bedside at pronouncement.
Discharge Plan
-
Patient Disposition:
Date/Time
Date/Time: 11/13/24 14:00
Discharge Date and Time
Print Language: MOZAMBICAN
== END 2024-11-13 14:00 | disposition expired | DRG 208 ==
LOC: ICU 09:44
PROVIDERS: ADMITTING PHYSICIAN Internal Medicine; CONSULT PHYSICIAN Internal Medicine Critical Care Medicine; CONSULT PHYSICIAN Psychiatry & Neurology Neurology; EMERGENCY PHYSICIAN Emergency Medicine; FAMILY PHYSICIAN Student in an Organized Health Care Education/Training Program
PROC: 5A1935Z Respiratory Ventilation, Less than 24 Consecutive Hours (ICD-10-PCS; 2024-11-13)
DX: J96.21 Acute and chronic respiratory failure with hypoxia (principal); G93.41 Metabolic encephalopathy; I63.9 Cerebral infarction, unspecified; F03.94 Unspecified dementia, unspecified severity, with anxiety; F03.93 Unspecified dementia, unspecified severity, with mood disturbance; E87.1 Hypo-osmolality and hyponatremia; E87.20 Acidosis, unspecified; R57.8 Other shock; J44.89 Other specified chronic obstructive pulmonary disease; Z99.81 Dependence on supplemental oxygen; I48.91 Unspecified atrial fibrillation; Z79.01 Long term (current) use of anticoagulants; I10 Essential (primary) hypertension; E78.5 Hyperlipidemia, unspecified; E11.9 Type 2 diabetes mellitus without complications; Z79.4 Long term (current) use of insulin; F32.A Depression, unspecified; Z79.82 Long term (current) use of aspirin; Z87.891 Personal history of nicotine dependence; K59.00 Constipation, unspecified; D64.9 Anemia, unspecified; D69.6 Thrombocytopenia, unspecified; E83.51 Hypocalcemia; E88.09 Other disorders of plasma-protein metabolism, not elsewhere classified; D72.819 Decreased white blood cell count, unspecified; K21.9 Gastro-esophageal reflux disease without esophagitis; L89.159 Pressure ulcer of sacral region, unspecified stage
CPT/HCPCS: 51702; 70450; 71045; 74018; 80053; 81003; 81015; 82805; 82962; 83605; 83735; 83880; 84100; 84484; 85025; 85610; 85730; 86850; 86900; 86901; 87040; 87077; 87205; 93005; 94002; 96361; 96374; 96375; 99291